=== PATIENT | female | born 1980 | race Two or more races ===

== ENCOUNTER → 2021-11-18 | Emergency (ER) | payer OTHER ==
[~2021-11-18] VITALS: Ht 152.4 cm; Wt 64.4 kg
[~2021-11-18] MED LIST: CEPHALEXIN500 MG PO; KETO10TA2 PO; ORASEP SPRAY30 ML MM; WELLBUTRIN SR100 MG
== END | disposition home or self-care (01) ==
LOC: ER 02:28
DX: J03.80 Acute tonsillitis due to other specified organisms (principal); B96.89 Other specified bacterial agents as the cause of diseases classified elsewhere

== ENCOUNTER 2025-01-02 11:38 | Emergency (ER) | payer OTHER ==
[~2025-01-02] VITALS: Ht 152.4 cm; Wt 63.5 kg
[2025-01-02 15:20] LABS: BASO % 0.6 % (0.1-1.2); EOS # 0.39 (0.04-0.54); EOS % 4.3 % (0.7-7.0); LYMPH # 2.40 (1.18-3.74); LYMPH % 26.8 % (19.3-53.1); MEAN PLATELET VOLUME 9.00 fl (9.4-12.4); MONO # 0.71 (0.24-0.82); MONO % 7.9 % (4.7-12.5); NEUT # 5.40 (1.56-6.13); NEUT % 60.2 % (34.0-71.1); RED CELL DISTRIBUTION WIDTH 12.9 % (11.6-14.4)
[2025-01-02 16:17] LABS: COVID-19 AG NEGATIVE (NEGATIVE)
== END 2025-01-02 16:42 | disposition home or self-care (01) ==
LOC: ER 11:38
PROVIDERS: General Practice
DX: B34.9 Viral infection, unspecified (principal); J04.0 Acute laryngitis; R05.9 Cough, unspecified; Z20.822 Contact with and (suspected) exposure to COVID-19